=== PATIENT | female | born 1995 | race Two or more races ===

== ENCOUNTER 2017-09-02 17:47 | Emergency (ER) | payer OTHER ==
[~2017-09-02] VITALS: Ht 172.7 cm; Wt 103.7 kg
[2017-09-02 17:55] VITALS: Ht 172.7 cm; Wt 103.7 kg
[2017-09-02] MEDS ORDERED: SOD CHLORIDE 0.9% 1,000 ML IV STA (19:24)
[2017-09-02] MEDS ORDERED: ONDANSETRON 4 MG INJ IV STA (19:24)
[2017-09-02] MEDS ORDERED: ACETAMINOPHEN 325 MG TAB PO ONE (19:30)
--- NOTE | 2017-09-02 19:35 | ERD ---
ER Documentation Chief Complaint Chief Complaint vomiiting and diarrhea x 2 days with epigastric pain, 3 mths HPI 21-year-old female presents here to emergency department for complaints of vomiting and diarrhea that started 2 days ago, she does not have any blood in his stool or black stool. Patient not have any blood in the vomit. Patient does not have any hematuria or dysuria. Patient is approximately 12 weeks , 1 para 0 0. Patient denies any vaginal bleeding. LMP 06/05/2017. ROS All systems reviewed and are negative except as per history of present illness. Medications Home Meds Active Scripts Ondansetron (Ondansetron Odt) 4 Mg Tab.rapdis, 4 MG PO Q6H Y for NAUSEA AND/OR VOMITING, #20 TAB Prov:YANELY SANCHEZ [employer] 09/02/17 Acetaminophen* (Tylophen*) 500 Mg Capsule, 1 CAP PO Q6H Y for PAIN AND OR ELEVATED TEMP, #20 CAP Prov:YANELY SANCHEZ [employer] 09/02/17 Reported Medications [none] Unknown Strength No Conflict Check 09/02/17 Allergies Allergies: Coded Allergies: erythromycin base (Verified Allergy, Intermediate, 09/02/17) PMhx/Soc Medical and Surgical Hx: pt denies Surgical Hx History of Surgery: No Anesthesia Reaction: No Hx Neurological Disorder: No Hx Respiratory Disorders: No Hx Cardiac Disorders: No Hx Psychiatric Problems: No Hx Miscellaneous Medical Probl: Yes (12 WEEKS ) Hx Alcohol Use: No Hx Substance Use: No Hx Tobacco Use: No Smoking Status: Never smoker FmHx Family History: No coronary disease, No diabetes, No other Physical Exam Vitals Vital Signs Date Time Temp Pulse Resp B/P Pulse Ox O2 Delivery O2 Flow Rate FiO2 09/02/17 22:41 97.8 87 20 126/78 97 Room Air 09/02/17 17:55 100.2 112 20 135/86 97 Physical Exam GENERAL: The patient is well developed and appropriate for usual state of health, in no apparent distress. CHEST: Clear to auscultation bilaterally. There are no rales, wheezes or rhonchi. HEART: Regular rate and rhythm. No murmurs, clicks, rubs or gallops. No S3 or S4. ABDOMEN: Soft, nontender and nondistended. Hyperactive bowel sounds. No rebound or guarding. No gross peritonitis. No gross organomegaly or masses. No Hanna sign or McBurney point tenderness. BACK: No midline or flank tenderness. EXTREMITIES: Equal pulses bilaterally. There is no peripheral clubbing, cyanosis or edema. No focal swelling or erythema. Full range of motion. Grossly neurovascularly intact. NEURO: Alert and oriented. Cranial nerves 2-12 intact. Motor strength in all 4 extremities with 5/5 strength. Sensation grossly intact. Normal speech and gait. SKIN: There is no apparent rash or petechia. The skin is warm and dry. HEMATOLOGIC AND LYMPHATIC: There is no evidence of excessive bruising or lymphedema. No gross cervical, axillary, or inguinal lymphadenopathy. Result Diagram: 09/02/17 1800 09/02/172057 Results 24 hrs Laboratory Tests Test 09/02/17 18:00 09/02/17 20:58 White Blood Count 9.710^3/ul Red Blood Count 4.6410^6/ul Hemoglobin 12.0g/dl Hematocrit 35.7% Mean Corpuscular Volume 76.9fl Mean Corpuscular Hemoglobin 25.9pg Mean Corpuscular Hemoglobin Concent 33.6g/dl Red Cell Distribution Width 16.7% Platelet Count 33007^3/UL Mean Platelet Volume 12.0fl Neutrophils % 84.3% Lymphocytes % 11.2% Monocytes % 4.1% Eosinophils % 0.1% Basophils % 0.1% Nucleated Red Blood Cells % 0.0/100WBC Neutrophils # 8.210^3/ul Lymphocytes # 1.110^3/ul Monocytes # 0.410^3/ul Eosinophils # 0.010^3/ul Basophils # 0.010^3/ul Nucleated Red Blood Cells # 0.010^3/ul Urine Color YELLOW Urine Clarity CLEAR Urine pH 6.0 Urine Specific [place] 1.008 Urine Ketones TRACEmg/dL Urine Nitrite NEGATIVEmg/dL Urine Bilirubin NEGATIVEmg/dL Urine Urobilinogen NEGATIVEmg/dL Urine Leukocyte Esterase NEGATIVELeu/ul Urine Hemoglobin NEGATIVEmg/dL Urine Glucose NEGATIVEmg/dL Urine Total Protein NEGATIVEmg/dl Sodium Level 138mmol/L Potassium Level 3.1mmol/L Chloride Level 106mmol/L Carbon Dioxide Level 22mmol/L Anion Gap 13 Blood Urea Nitrogen 7mg/dl Creatinine 0.53mg/dl Glucose Level 82mg/dl Calcium Level 8.5mg/dl Total Bilirubin 0.3mg/dl Direct Bilirubin 0.00mg/dl Indirect Bilirubin 0.3mg/dl Aspartate Amino Transf (AST/SGOT) 25IU/L Alanine Aminotransferase (ALT/SGPT) 39IU/L Alkaline Phosphatase 56IU/L Total Protein 6.4g/dl Albumin 3.3g/dl Globulin 3.10g/dl Albumin/Globulin Ratio 1.06 Lipase 33U/L Current Medications Medications (Trade) Dose Ordered Sig/Herbie Route PRN Reason Start Time Stop Time Status Last Admin Dose Admin Sodium Chloride (NS) 1,000 ml @ 1,000 mls/hr Q1H STAT IV 09/02/17 19:24 09/02/17 20:23 DC 09/02/17 19:58 Ondansetron HCl (Zofran Inj) 4 mg ONCE STAT IV 09/02/17 19:24 09/02/17 19:26 DC 09/02/17 19:57 Acetaminophen (Tylenol Tab) 650 mg ONCE ONCE PO 09/02/17 19:30 09/02/17 19:31 DC 09/02/17 19:57 Potassium Chloride (Klor-Con 20) 60 meq ONCE STAT PO 09/02/17 22:24 09/02/17 22:25 DC 09/02/17 22:34 Patient was given medication for pain here in emergency department, after treatment, patient verbalized feeling much better. Patient's pain is improved. Patient was given Zofran here in the emergency department. After treatment, patient was able to tolerate po fluids here in the emergency department without any vomiting. There is no signs and symptoms of dehydration. Normal saline IV bolus was given here in emergency department for rehydration, patient tolerated IV fluids. Patient was given medicines for fever control here in the emergency department. After treatment, patient temperature improved and lower. Patient appears well and is hemodynamically stable. PROCEDURE: First trimester obstetrical ultrasound. CLINICAL INDICATION: , pelvic pain TECHNIQUE: Transabdominal van scale and color Doppler ultrasound of the uterus of less than 14 weeks gestation (first trimester). COMPARISON: None available FINDINGS: A single intrauterine gestation is present. No evidence of extrauterine gestation. [place]-rump length: 6.99 cm heart rate: 168 Beats per minute No evidence of subchorionic hemorrhage. Normal size ovaries are present with intact blood flow. Free fluid: None. IMPRESSION: Single intrauterine gestation with an estimated gestational age of 13 weeks 1 days by ultrasound criteria. RPTAT: AADD .Yomi Cardenas MD, Date Time Electronically viewed and signed by .Yomi Cardenas MD, on 09/02/2017 20:29 .B/ CC: YANELY SANCHEZ [employer] As this case with my attending physician, Dr. Chapman, patient has low potassium from multiple episodes of vomiting and diarrhea, he recommended to replace potassium with 60 MBq KCl p.o. Procedures/MDM Medical Decision Making: Symptoms consistent with viral gastroenteritis. No symptoms of dehydration. Potassium is low, was given potassium here in the emergency department. Patient is a viable without any symptoms of any threatened . There is low suspicion for abdominal emergencies at this time. Patients abdominal exam is normal at this time. Patients radiology exam does not show any abdominal emergencies at this time. There is low suspicion for appendicitis, cholecystitis, abdominal aortic aneurysms or peritonitis at this time. There is low suspicion for sepsis. Patient appears well and is hemodynamically stable. Disposition: Home. Condition: Stable Prescription Zofran, Tylenol Instructions: Patient is advised to take medications as prescribed. Patient is advised to rest, increase fluid intake and do brat diet for next 1-2 days and progress as tolerated. Patient is advised that if symptoms are worse, severe abdominal pain, uncontrolled vomiting, high fever, severe flank pain, worst signs and symptoms, to return to the emergency department immediately. Otherwise, patient can follow up with primary care doctor in 5-7 days. Disclaimer: Inadvertent spelling and grammatical errors are likely due to EHR/ dictation software use and do not reflect on the overall quality of patient care. Also, please note that the electronic time recorded on this note does not necessarily reflect the actual time of the patient encounter. Departure Diagnosis: Primary Impression: Viral gastroenteritis Additional Impression: Intrauterine Condition: Stable Patient Instructions: Gastroenteritis, Viral (6Y-Adult) Additional Instructions: Patient is advised to take medications as prescribed. Patient is advised to rest , increase fluid intake and do brat diet for next 1-2 days and progress as tolerated. Patient is advised that if symptoms are worse, severe abdominal pain , uncontrolled vomiting, high fever, severe flank pain, worst signs and symptoms , to return to the emergency department immediately. Otherwise, patient can follow up with primary care doctor in 5-7 days. YANELY SANCHEZ NP Sep 02, 2017 19:35
[2017-09-02 20:11] LABS: BASOPHILS % 0.1 % (0.0-2.0); EOSINOPHILS % 0.1 % (0.0-7.0); HEMATOCRIT 35.7 % (37.0-47.0); LYMPHOCYTES # 1.1 10^3/ul (0.8-2.9); LYMPHOCYTES % 11.2 % (18.0-55.0); MEAN CORPUSCULAR HEMOGLOBIN 25.9 pg (29.0-33.0); MEAN CORPUSCULAR HGB CONC 33.6 g/dl (32.0-37.0); MEAN CORPUSCULAR VOLUME 76.9 fl (72.0-104.0); MONOCYTE # 0.4 10^3/ul (0.3-0.9); MONOCYTES % 4.1 % (0.0-13.0); NEUTROPHIL # 8.2 10^3/ul (1.6-7.5); NEUTROPHILS % 84.3 % (30.0-74.0); PLATELET COUNT 230 10^3/UL (140-415); RED BLOOD COUNT 4.64 10^6/ul (4.20-5.40); RED CELL DISTRIBUTION WIDTH 16.7 % (11.5-14.5); WHITE BLOOD COUNT 9.7 10^3/ul (4.8-10.8)
[2017-09-02 20:20] LABS: ADD UMIC NO; UR ASCORBIC ACID NEGATIVE (NEGATIVE); UR BILIRUBIN (Dip) NEGATIVE (NEGATIVE); UR BLOOD (Dip) NEGATIVE (NEGATIVE); UR CLARITY CLEAR (CLEAR); UR COLOR YELLOW (YELLOW); UR GLUCOSE (Dip) NEGATIVE (NEGATIVE); UR KETONES (Dip) TRACE mg/dL (NEGATIVE); UR LEUKOCYTE ESTERASE (Dip) NEGATIVE Leu/ul (NEGATIVE); UR NITRITE (Dip) NEGATIVE (NEGATIVE); UR SPECIFIC GRAVITY (Dip) 1.008 (1.003-1.030); UR TOTAL PROTEIN (Dip) NEGATIVE (NEGATIVE); UR UROBILINOGEN (Dip) NEGATIVE (NEGATIVE)
--- NOTE | 2017-09-02 20:30 | RADRPT ---
PROCEDURE: First trimester obstetrical ultrasound. CLINICAL INDICATION: , pelvic pain TECHNIQUE: Transabdominal van scale and color Doppler ultrasound of the uterus of less t [place] 14 weeks gestation (first trimester). COMPARISON: None available FINDINGS: A single intrauterine gestation is present. No evidence of extrauterine gestation. [place]-rump length: 6.99 cm heart rate: 168 Beats per minute No evidence of subchorionic hemorrhage. Normal size ovaries are present with intact blood flow. Free fluid: None. IMPRESSION: Single intrauterine gestation with an estimated gestational age of 13 weeks 1 days by ultrasound [place]. RPTAT: AADD .Yomi Cardenas MD, MD Date Time Electronically viewed and signed by .Yomi Cardenas MD, on 09/02/2017 20:29 .B/
[2017-09-02 21:41] LABS: ALBUMIN 3.3 g/dl (3.3-4.9); ALBUMIN/GLOBULIN RATIO 1.06; BILIRUBIN,INDIRECT 0.3 mg/dl (0-1.1); BILIRUBIN,TOTAL 0.3 mg/dl (0.2-1.3); CALCIUM 8.5 mg/dl (8.4-10.2); CREATININE 0.53 mg/dl (0.44-1.00); POTASSIUM 3.1 mmol/L (3.5-5.1); TOTAL PROTEIN 6.4 g/dl (6.1-8.1)
[2017-09-02] MEDS ORDERED: POTASSIUM CHLORIDE (SR) 20 MEQ TAB PO STA (22:24)
[2017-09-02] MEDS ORDERED: ONDA4TAB14 PO (22:29)
[2017-09-02] MEDS ORDERED: ACET500C5 PO (22:29)
[2017-09-02 22:41] VITALS: BP 126/78; PULSE 87; RESP 20; TEMP 97.8
== END 2017-09-02 22:49 | disposition home or self-care (01) ==
LOC: FTE 17:47
DX: O99.611 Diseases of the digestive system complicating pregnancy, first trimester (principal); A08.4 Viral intestinal infection, unspecified; R10.13 Epigastric pain; R10.2 Pelvic and perineal pain; Z3A.13 13 weeks gestation of pregnancy
CPT/HCPCS: 76805; 80053; 81003; 83690; 85025; 96374; J2405; J7030; Z7502; Z7610